=== PATIENT | male | born 2000 | race Two or more races ===

== ENCOUNTER → 2020-07-05 | Outpatient (CLI) | payer OTHER | END | disposition home or self-care (01) | LOC: RX STUDY 09:30 | PROVIDERS: ATTEND Colon & Rectal Surgery | DX: K59.09 Other constipation (principal) ==

== ENCOUNTER 2020-08-01 07:14 | Outpatient (CLI) | payer OTHER | END 2020-08-01 07:26 | disposition home or self-care (01) | LOC: RX STUDY 07:14 | PROVIDERS: ATTEND Colon & Rectal Surgery | DX: A08.8 Other specified intestinal infections (principal) ==